=== PATIENT | male | born 1970 | race Caucasian/White ===

== ENCOUNTER 2017-04-07 09:45 | Emergency (ER) | payer BC ==
[2017-04-07 10:22] LABS: Anion Gap 15 mmol/L (10-20); BUN (Urea Nitrogen) 14 mg/dL (8.9-20.6); Calc. Creatinine Clearance 0 mL/min (70-130); Calcium 9.5 mg/dL (7.8-10.44); Carbon Dioxide 27 mmol/L (22-29); Chloride 101 mmol/L (98-107); Estimated GFR-MDRD Greater than 90
== END 2017-04-07 10:45 | disposition home or self-care (01) ==
LOC: SCSER 09:45
DX: R11.2 Nausea with vomiting, unspecified (principal); R51 Headache
CPT/HCPCS: 80048; 99284

== ENCOUNTER 2017-09-12 14:14 | Outpatient (CLI) | payer OTHER | END 2017-09-12 14:15 | disposition home or self-care (01) | LOC: BICRAD 14:14 | PROVIDERS: ATTEND Family Medicine | DX: S89.92XA Unspecified injury of left lower leg, initial encounter (principal) ==

== ENCOUNTER 2018-07-16 07:00 | Day surgery (SDC) | payer OTHER ==
[2018-07-08 10:57] VITALS: BMI 22.4
[2018-07-16 07:43] VITALS: BP 113/77; TEMP 98.3
--- NOTE | 2018-07-16 11:13 | RAD ---
MYELOGRAM LUMBAR SPINE: Date: 07/16/18 HISTORY: Degenerative disc disease. COMPARISON: None. FINDINGS: [employer] radiograph of the lumbar spine demonstrates left paraspinal surgical clips. Posterior spinal fu shiva hardware L3-L5 posteriorly with kal and screw fixation and transpedicular screws. Anterior block ing screws and diskectomy changes at L3-4 and L4-5. The patient was brought to the fluoroscopy suite. All questions were answered. Informed consent was obtained. Timeout performed. The patient was put in the prone position. The L2-3 interspace was accessed with a 22 gauge spinal ne edle after adequate local anesthesia with 3 mL of buffered lidocaine. A total of 10 mL of contrast so lution was instilled into the thecal sac. The patient tolerated the procedure well and without compli cation. IMPRESSION: Technically successful fluoroscopic guided lumbar myelogram. Fluoro Time: 1.1 minutes. Dose Area Product: 609.9 mGy*m^2. POS: [facility]
[2018-07-16] MEDS ORDERED: Iopamidol-M 200 41% 20 ML VIAL ONE (11:44)
--- NOTE | 2018-07-16 11:54 | CT ---
CT LUMBAR SPINE WITH INTRATHECAL CONTRAST: HISTORY: Lumbar spine pain. COMPARISON: Lumbar spine CT without contrast from 06/08/2016. FINDINGS: The lung bases are clear. Aortic contour is nonaneurysmal. No retroperitoneal adenopathy. No abnormal renal calcifications. No acute fracture or malalignment. The right L3 transpedicular sc rew abuts the superior endplate of the L3 vertebral body, anteriorly. The left L4 transpedicular scr ew tip abuts the superior endplate of L4. The visualized sternotomy portion of the SI joints is unremarkable. The transverse processes are int act. The visualized posterior ribs are intact. The levels are as follows: L1-L2: Normal disk. No neural foraminal or spinal canal narrowing. L2-L3: Normal disk. No neural foraminal or spinal canal narrowing. L3-L4: There is 1 mm of retrolisthesis of L3 over L4. The diskectomy cage is intact. No migration. No significant neural foraminal or spinal canal narrowing. L4-L5: Diskectomy changes. Small bilateral subforaminal posterior disk osteophyte complexes, larger on the patient's right. Mild right-sided neural foraminal narrowing. No significant left-sided elicia ral foraminal narrowing. L5-S1: Low degenerative disk space height loss. There is a low-grade broad-based posterior disk ost eophyte complex, greatest in the right subforaminal zone. Moderate right-sided neural foraminal narr owing. IMPRESSION: Moderate spondylosis on the right at L4-L5 and at L5-S1 due to small posterior disk osteophyte comple xes and moderate neural foraminal narrowing. No significant spinal canal narrowing. No hardware com plication. POS: [facility]
== END 2018-07-16 09:35 | disposition home or self-care (01) ==
LOC: RAD 07:00
PROVIDERS: ATTEND Nurse Practitioner Family
PROC: B01B1ZZ Fluoroscopy of Spinal Cord using Low Osmolar Contrast (ICD-10-PCS; principal; 2018-07-16)
DX: M51.16 Intervertebral disc disorders with radiculopathy, lumbar region (principal); M47.26 Other spondylosis with radiculopathy, lumbar region; Z79.1 Long term (current) use of non-steroidal anti-inflammatories (NSAID); Z79.899 Other long term (current) drug therapy; Z98.1 Arthrodesis status
CPT/HCPCS: 62304; 72132; Q9966

== ENCOUNTER 2021-08-09 11:39 | Outpatient (CLI) | payer BC | END 2021-08-09 11:40 | disposition home or self-care (01) | LOC: BICRAD 11:39 | PROVIDERS: ATTEND Anesthesiology Pain Medicine | DX: M47.816 Spondylosis without myelopathy or radiculopathy, lumbar region (principal); M48.8X7 Other specified spondylopathies, lumbosacral region; Z98.890 Other specified postprocedural states | CPT/HCPCS: 72110 ==

== ENCOUNTER 2021-08-25 14:42 | Outpatient (CLI) | payer BC ==
[2021-08-25] MEDS ORDERED: Magnevist 469MG/ML 20 ML VIAL ONE (15:18)
== END 2021-08-25 14:43 | disposition home or self-care (01) ==
LOC: SCSMRI 14:42 → BICMRI 14:43
PROVIDERS: ATTEND Anesthesiology Pain Medicine
DX: M48.062 Spinal stenosis, lumbar region with neurogenic claudication (principal); M51.27 Other intervertebral disc displacement, lumbosacral region; Z98.1 Arthrodesis status
CPT/HCPCS: 72158; A9579

== ENCOUNTER 2022-05-10 08:42 | Outpatient (CLI) | payer BC | END 2022-05-10 08:43 | disposition home or self-care (01) | LOC: BICRAD 08:42 | PROVIDERS: ATTEND Nurse Practitioner Family | DX: M51.16 Intervertebral disc disorders with radiculopathy, lumbar region (principal); Z98.1 Arthrodesis status | CPT/HCPCS: 72120 ==

== ENCOUNTER 2022-06-01 13:52 | Outpatient (CLI) | payer BC | END 2022-06-01 13:53 | disposition home or self-care (01) | LOC: MRI 13:52 | PROVIDERS: ATTEND Nurse Practitioner Family | DX: M51.16 Intervertebral disc disorders with radiculopathy, lumbar region (principal); M47.26 Other spondylosis with radiculopathy, lumbar region; Z98.890 Other specified postprocedural states | CPT/HCPCS: 72158 ==

== ENCOUNTER 2022-12-04 12:18 | Outpatient (CLI) | payer BC | END 2022-12-04 12:19 | disposition home or self-care (01) | LOC: RAD 12:18 | PROVIDERS: ATTEND Family Medicine | DX: R05.9 Cough, unspecified (principal) | CPT/HCPCS: 71046 ==

== ENCOUNTER 2024-02-12 11:17 | Outpatient (CLI) | payer BC | END 2024-02-12 11:18 | disposition home or self-care (01) | LOC: BICRAD 11:17 | PROVIDERS: ATTEND Family Medicine | DX: J20.9 Acute bronchitis, unspecified (principal) | CPT/HCPCS: 71046 ==